=== PATIENT | male | born 1995 | race Caucasian/White ===

== ENCOUNTER 2017-04-17 15:14 | Emergency (ER) | payer BC ==
--- NOTE | 2017-04-17 16:28 | ED Physician Chart ---
ED Chief Complaint/HPI - Patient Information Date Seen:: 04/17/17 Time Seen:: 16:15 Chief Complaint:: abdominal pain History of Present Illness:: Patient developed periumbilical pain 1 week ago. He had no pain for 4-5 days and the pain recurred this morning. He is nauseated without vomiting or diarrhea. He was sent here from the urgent care center. He was given a GI cocktail there. His white blood cell count was 16,300 this morning at the urgent care center. Patient denies abdominal pain at present. He can walk without pain. No chills or fever. Allergies:: Allergies Allergy/AdvReac Type Severity Reaction Status Date / Time No Known Allergies Allergy Verified 04/17/17 16:02 Vitals:: Vital Signs - 8 hr 04/17/17 16:02 Temp 98.2 F HR 92 RR 16 BP 139/88 O2 Sat % 98 Historian:: Patient Review:: Nurse's Note Reviewed ED Review of Systems - Review of Systems General/Constitutional: No fever, No chills Skin: No skin lesions Head: No headache Eyes: No loss of vision ENT: No earache Neck: No neck pain, No swelling Cardio Vascular: No chest pain, No palpitations Pulmonary: No SOB GI: No nausea, No vomiting G/U: No dysuria Musculoskeletal: No bone or joint pain Endocrine: No polyuria Psychiatric: No prior psych history, No depression, No anxiety Hematopoietic: No bruising Allergic/Immuno: No urticaria Neurological: No syncope, No focal symptoms ED Past Medical History - Past Medical History Past Medical History: No significant medical hx Family History: HTN Social History: Non Smoker, No Alcohol Surgical History: None Psychiatricy History: None Medication: None ED Physical Exam - Physical Examination General/Constitutional: Well-developed, well-nourished, Alert, No distress Head: Atraumatic Eyes: Lids, conjuctiva normal Skin: Nl inspection, No rash ENMT: External ears, nose nl, TM canals nl, Nasal exam nl, Lips, teeth, gums nl , Oropharynx nl, Tonsils nl Neck: No nuchal rigidity Respiratory: Nl effort/Exclusion, Clear to Auscultation, No Wheeze/Rhonchi/Rales Cardio Vascular: RRR, No murmur, gallop, rubs GI: No tenderness/rebounding/guarding, No organomegaly, No hernia, Normal BS's, Nondistended, No mass/bruits, No McBurney tenderness : No CVA tenderness Extremities: Normal digits & nails Neuro/Psych: Alert/oriented, No focal deficits Misc: No paraspinal tenderness ED Labs/Radiology/EKG Results - Lab Results Comments:: Laboratory Results - last 24 hr 04/17/17 04/17/17 04/17/17 16:40 16:40 17:10 WBC 12.9 H RBC 5.63 Hgb 15.9 Hct 46.7 MCV 82.9 MCH 28.2 MCHC Differential 34.0 RDW 12.5 Plt Count 396 MPV 6.2 Neutrophils % 70.5 Lymphocytes % 16.7 L Monocytes % 4.8 Eosinophils % 6.5 H Basophils % 1.5 Whole Bld Lactic Acid 1.03 Urine Source [place] Urine Color YELLOW Urine Clarity CLEAR Urine pH 8.0 Ur Specific [place] 1.015 Urine Protein NEGATIVE Urine Glucose (UA) NEGATIVE Urine Ketones NEGATIVE Urine Blood NEGATIVE Urine Nitrate NEGATIVE Urine Bilirubin NEGATIVE Urine Urobilinogen 0.2 Ur Leukocyte Esterase NEGATIVE Urine RBC NONE SEEN Urine WBC NONE SEEN Ur Epithelial Cells NONE SEEN Urine Bacteria NONE SEEN ED Assessment - Assessment General Assessment: At 1800 patient was reexamined. Patient had 3 out of 10 periumbilical pain. Bowel sounds were present. Abdomen was soft. There is slight right lower quadrant tenderness which the patient describes this tiny. The chances of appendicitis appear very slight. Ultrasound showed increased gas but the appendix was not visualized. I told patient that if his pain increased he is to return to the emergency department immediately. ED Septic Shock - . Is Septic Shock (SBP<90, OR Lactate>4 mmol\L) present?: No - <6hrs of presentation: Vital Signs: Vital Signs - 8 hr 04/17/17 16:02 Temp 98.2 F HR 92 RR 16 BP 139/88 O2 Sat % 98 ED Reassessment (Disposition) - Reassessment Reassessment Condition:: Improved - Diagnosis Diagnosis:: Gastritis - Aftercare/Follow up Instructions Aftercare/Follow-Up Instructions:: Refer to Discharge Instructions - Patient Disposition Discharge/Transfer:: Home Condition at Disposition:: Stable, Unchanged
[2017-04-17 16:46] LABS: % BASOPHILS 1.5 % (0.0-2.0); % EOSINOPHILS 6.5 % (0.0-5.0); % LYMPHOCYTES 16.7 % (20.0-50.0); % MONOCYTES 4.8 % (2.0-10.0); % NEUTROPHILS 70.5 % (40.0-80.0); BASOPHILE ABSOLUTE 0.2 Th/cumm (0-0.2); EOSINOPHILE ABSOLUTE 0.8 Th/cmm (0.1-0.4); HEMATOCRIT 46.7 % (41.0-60); HEMOGLOBIN 15.9 gm/dL (12-16); LYMPHOCYTE ABSOLUTE 2.2 Th/cmm (1.5-3.0); MEAN CELL VOLUME 82.9 fl (80-99); MEAN CORPUSCULAR HEMOGLOBIN 28.2 pg (26.0-30.0); MEAN PLATELET VOLUME 6.2 fl; MONOCYTE ABSOLUTE 0.6 Th/cmm (0.3-1.0); NEUTROPHILE ABSOLUTE 9.1 Th/cmm (1.8-8.0); PLATELET COUNT 396 Th/cmm (150-400); RED BLOOD COUNT 5.63 Mil/cmm (4.30-5.70); RED CELL DISTRIBUTION WIDTH 12.5 % (11.5-20.0)
[2017-04-17 16:56] LABS: WHITE BLOOD COUNT 12.9 Th/cmm (4.8-10.8)
[2017-04-17 17:20] LABS: URINE MICROSCOPIC INDICATED? YES; URINE SOURCE MIDSTREAM
[2017-04-17 17:23] LABS: URINE BILIRUBIN NEGATIVE (NEGATIVE); URINE BLOOD NEGATIVE (NEGATIVE); URINE GLUCOSE (UA) NEGATIVE (NEGATIVE); URINE KETONE NEGATIVE (NEGATIVE); URINE LEUKOCYTE ESTERASE NEGATIVE (NEGATIVE); URINE NITRATE NEGATIVE (NEGATIVE); URINE PROTEIN NEGATIVE (NEGATIVE); URINE UROBILINOGEN 0.2 E.U./dL (0.2 - 1.0)
[2017-04-17 17:24] LABS: URINE BACTERIA NONE SEEN /hpf (NONE SEEN); URINE CLARITY CLEAR (CLEAR); URINE COLOR YELLOW; URINE EPITHELIAL CELLS NONE SEEN /lpf (FEW); URINE RBC NONE SEEN /hpf (0-5); URINE WBC NONE SEEN /hpf (0-5)
[2017-04-17] MEDS ORDERED: Maalox 30 mL Cup PO ONE (18:08)
[2017-04-17] MEDS ORDERED: Maalox 30 mL Cup ONE (18:35)
--- NOTE | 2017-04-18 07:41 | Diagnostic Imaging Report ---
Abdominal ultrasound (limited, right lower quadrant) HISTORY: Pain, question appendicitis Limited sonographic sector images obtained over the right lower quadrant of the abdomen. The appendix cannot be clearly visualized. No abnormal masses or fluid collections seen within the right lower quadrant. The intra-abdominal organs were not evaluated at this time. IMPRESSION: 1. Limited exam of the right lower quadrant. Nonvisualization of the appendix with no abnormal masses or fluid collections. If clinically indicated, a CT scan would provide additional assessment.
== END 2017-04-17 19:00 | disposition home or self-care (01) ==
LOC: ER 15:14
DX: K29.70 Gastritis, unspecified, without bleeding (principal)
CPT/HCPCS: 36415-UA; 76705-TC; 81001-TC; 83605; 85025-TC